=== PATIENT | male | born 1990 | race Caucasian/White ===

== ENCOUNTER 2019-03-09 22:36 | Emergency (ER) | payer OTHER ==
[~2019-03-09] VITALS: Ht 180.3 cm; Wt 70.3 kg
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
[2019-03-09] MEDS ORDERED: TDAP [DIPH/PERTUSSIS/TET] 0.5 ML VIAL IM ONE ×2 (22:58→23:00)
[2019-03-09] MEDS ORDERED: KETOROLAC TROMETHAMINE INJ 60 MG/2 ML VIAL IM ONE ×3 (23:00→23:09)
--- NOTE | 2019-03-09 23:01 | NUR ---
RADIOLOGY AT BEDSIDE FOR XRAY
[2019-03-09] MEDS ORDERED: LIDOCAINE 1%-EPI 1:100,000 20 ML VIAL ONE (23:53)
--- NOTE | 2019-03-10 00:15 | NUR ---
DR. HOLBROOK AT BEDSIDE FOR LAC REPAIR
--- NOTE | 2019-03-10 00:56 | NUR ---
Patient discharged to home in stable condition. Written and verbal after care instructions given. Patient verbalizes understanding of instruction.Pt ambulatory with a steady gait
[2019-03-10 00:57] VITALS: BP 127/71
== END 2019-03-10 00:58 | disposition home or self-care (01) ==
LOC: ER 22:45
DX: S01.412A Laceration without foreign body of left cheek and temporomandibular area, initial encounter (principal); S05.12XA Contusion of eyeball and orbital tissues, left eye, initial encounter; S50.311A Abrasion of right elbow, initial encounter; F10.10 Alcohol abuse, uncomplicated; F17.200 Nicotine dependence, unspecified, uncomplicated; Y90.9 Presence of alcohol in blood, level not specified; Y04.8XXA Assault by other bodily force, initial encounter; Y93.39 Activity, other involving climbing, rappelling and jumping off; Y92.89 Other specified places as the place of occurrence of the external cause; Y99.8 Other external cause status
CPT/HCPCS: 12011; 70486; 73080; 90471; 90715; 96372; 99284; A6403; J1885 ×2; J3490